=== PATIENT | female | born 1995 | race African-American/Black ===

== ENCOUNTER 2018-09-14 13:38 | Emergency (ER) | payer OTHER ==
[~2018-09-14] VITALS: Ht 160 cm; Wt 98.4 kg
[2018-09-14] MEDS ORDERED: NAPROXEN375 M1 PO (14:18)
[2018-09-14] MEDS ORDERED: NAPROSYN500 MG PO ×2 (14:18→14:52)
[2018-09-14] MEDS ORDERED: TRAMADOL 50 MG50 MG PO (14:52)
[2018-09-14 15:38] VITALS: BP 153/90
== END 2018-09-14 15:38 | disposition home or self-care (01) ==
LOC: ER 13:38
DX: S30.0XXA Contusion of lower back and pelvis, initial encounter (principal); W01.0XXA Fall on same level from slipping, tripping and stumbling without subsequent striking against object, initial encounter; Y92.89 Other specified places as the place of occurrence of the external cause; Y93.89 Activity, other specified; Y99.8 Other external cause status